=== PATIENT | male | born 1955 | race Caucasian/White ===

== ENCOUNTER 2016-05-26 09:56 | Day surgery (SDC) | payer MEDICARE ==
--- NOTE | 2016-05-24 08:52 | PCM.HPANE ---
Patient Data Surgeon Admitting Provider: Attending Provider:Kvng Barber MD Primary Care Physician:Lucille Mejia MD Other Provider:Alyce Mccarthy Anesthesia Reason for Visit Chronic Renal Failure Ht/WT & BMI Height (Feet): 5 Height (Inches): 10 Weight (Kilograms): 70.7 Body Mass Index 22.00 Allergies Coded Allergies: No Known Drug Allergies (Verified Allergy, Unknown, 01/28/16) Past Anesthesia History Anesthesia History: Denies:: Abnormal Airway, Anesthesia Reactions, Difficult Intubation, Fam Anesthesia Reaction, Fam Malignant Hypertherm, Malignant Hyperthermia Diabetes History Hx Diabetes?: Yes (IDDM, Hgb A1C 6.9- 04/2016) Type of Diabetes: Type II Glycemic Control: Insulin Dependent MRSA MRSA: No Medications Blood Thinner: Aspirin Hypertension Medication: Yes Home Meds Incl Beta Denia: Yes Reported Medications Carvedilol 6.25 Mg Tablet6.25 Mg PO QPM Ref 0 05/22/16 Carvedilol 6.25 Mg Zsugvz51.5 Mg PO QAM Ref 0 05/22/16 Amitriptyline 25 Mg Tab50 Mg PO HS Ref 0 05/05/16 Sodium Polystyrene Sulfonate (Kionex)15 Gm/60 Ml Oral.susp15 Gm PO every other day 05/05/16 Sodium Bicarbonate 650 Mg Tablet2 Tab PO BID 05/05/16 Tamsulosin (Flomax)0.4 Mg Capsule0.4 Mg PO DAILY Ref 0 04/07/16 Ferrous Sulfate 325 Mg Hkvmqx143 Mg PO DAILY 30 Days Ref 0 11/13/15 Amlodipine 10 Mg Rdjteu50 Mg PO DAILY Ref 0 11/13/15 Calcitriol (Rocaltrol)0.25 Mcg Capsule0.25 Mcg PO DAILY 07/10/15 Aspirin 81 Mg Owgcsk76 Mg PO DAILY Ref 0 06/09/15 Simvastatin 40 Mg Yasgul28 Mg PO HS 30 Days Ref 0 08/10/14 Gabapentin 400 Mg Rffkbap647 Mg PO TID 30 Days Ref 0 07/28/14 Insulin Aspart (NovoLOG U-100 Pen)100 Unit/Ml Insuln.pen3 U Sq Dailywm WITH MEALS 07/28/14 Discontinued Reported Medications Carvedilol 25 Mg Griykf99 Mg PO DAILY Ref 0 05/05/16 History History of ENT Problems?: Yes HEENT History: Positive for:: Cataracts (not yet surgically treated) Hearing Problem Denies:: Abnormal Airway Difficult Intubation Dysphagia Glaucoma Sinus Problem TMJ Other HEENT Pertinent History: diabetic retinopathy- surgery in february to clean up hemorrhaging- Dr Henderson Hx of Heart Problems?: Yes Cardiovascular History: Positive for:: Edema Hypertension Denies:: AICD Atrial Fibrillation Cardiac Surgery Chest Pain Congestive Heart Failure Heart Murmur Irregular Heartbeat Pacemaker Thrombophlebitis Valvular Heart Disease Hx of Respiratory Problem?: No Respiratory History: Denies:: Asthma COPD Cough Emphysema Oxygen Administration Pneumonia Tuberculosis Use of C-PAP Machine Use of Inhalers / NEBS Hx Neurologic Problems?: No Neurological History: Denies:: CVA Dementia Dizziness Headaches Multiple Sclerosis Parkinson's Disease Seizures Hx of GI Problems?: No Gastrointestinal History: Denies:: Cirrhosis Diverticulitis Gall Bladder Disease Gastroesphageal Reflux Heartburn Hepatitis Liver Disease Hx of Problems?: Yes Genitourinary History: Denies:: HX of Hemodialysis (CKDstage IV) Kidney Stones Urinary Tract Infection HX of Peritoneal Dialysis: No Male Hx: Denies:: Prostate Problems Scrotal Mass Testicular Surgery Skin History: Denies:: History Skin Disorders? Pressure Ulcers Hx Musculoskeletal Problems?: Yes Musculoskeletal History: Positive for:: Musculoskeletal Trauma (LEFT ANKLE) Denies:: Back Injury Fibromyalgia Joint Replacement Myasthenia Gravis Osteoarthritis Rheumatoid Arthritis Hx of Psycho/Social Problems?: No Psycho Social History: Denies:: Anxiety Bipolar Disorder Hx Depression Hx Surgeries?: Yes (bilat wrists carpel tunnel repair, L finger tumor removed, BROKEN LEFT HEEL) Hx Any Other Health Problems?: Yes Other History: Denies:: Cancer Hospitalization Thyroid Disease History Blood Transfusions: Positive for:: Accept Blood Products? Blood Transfusions (iron infusions and procrit injections/ dec 2015- anemia) Hx Diabetes: Yes (IDDM, Hgb A1C 6.9- 04/2016) Hx Alcohol Use: NoHx Substance Use: No Smoking Status: Never Smoker Have You Smoked inLast 12 mo: No Stop/Bang S-Snoring: Do You Snore Loudly: Yes T-Tired: feel tired, fatigued: Yes O-Obsered: Observed not breath: No P-Blood Pressure: treated: Yes B- Body Mass Index > 35 kg/m2: No A- Age over 50: Yes N- Neck Large Circumference: No G- Gender Male: Yes AIMEE Total Score: 5 Risk Assessment Category Category 1A: Patient has history of documented sleep apnea, and HAS NOT received any narcotic, sedative or anesthesia administration during this stay. Category 1B: Patient has history of documented sleep apnea, and HAS received any narcotic , sedative or anesthesia administration during this stay Category 2: Patient has SUSPECTED Obstructive Sleep Apnea, and HAS received any narcotic , sedative or anesthesia administration during this stay. Category 3: Patient has SUSPECTED Obstructive Sleep Apnea and HAS NOT received narcotic, sedative or anesthesia administration during this stay. Category 4: Outpatient in Procedural Areas with known sleep apnea or who screen positive for High Risk via the STOP/BANG questionnaire. Exam Exam General Appearance: Alert, Oriented X3, Cooperative, Moderate Distress HEENT/AIRWAY: MP 2, Neck Movement (from), Mouth Opening (wnl, prominent front teeth) Lungs: Clear to Auscultation Heart: Exam Unremarkable Plan Impression Patient chart reviewed, patient interviewed and anesthestic plan with risks, benefits, and alternatives discussed, and informed consent obtained. NPO Status: 1900 08/13/14 ASA Physical Status: ASA3 Severe Disease Anesthetic Plan: GA Bene/Risks/Altern/Consents: Yes HP Complete Prior to Induction: Yes Other pt insists on GA. Shane Arenas MD May 24, 2016 08:52
--- NOTE | 2016-05-24 08:52 | PCM.ANEP2 ---
Post Anesthesia Evaluation ASA/CMS Post Anesthesia VS in Patient's Normal Range?: Yes Resp Stable; Airway Patent?: Yes CV Function & Hydration Stable: Yes Mental Status Recovered?: Yes Pain control Satisfactory?: Yes N/V Control Satisfactory?: Yes Shaen Arenas MD May 24, 2016 08:52
[2016-05-26] VITALS (9 sets, daily range): BP systolic 105–140; BP diastolic 62–87; PULSE 74–80; RESP 10–16; O2SAT 94–99
[~2016-05-26] VITALS: Ht 177.8 cm; Wt 69.1 kg
[~2016-05-26 09:56] MED LIST: AMLO10TA3 PO; AMT25T PO; ASPI-973 PO; CALC0.257 PO; CARV6.252 PO; CeFAZolin 2 Gm/50 mL D5W IV Premix IV ONE; FERR-83 PO; GABA-504 PO; INSU100I SQ; Lactated Ringer's 1,000 ML IV ONE; SIMV40TA5 PO; SODI15OR2 PO; SODI650T PO; TAMS0.4C98 PO
[2016-05-26] MEDS ORDERED: fentaNYL-PF 50 mCg/mL 2 mL Inj ONE (09:57)
[2016-05-26] MEDS ORDERED: Ondansetron 2 mg/mL 2 mL Inj ONE (09:57)
[2016-05-26] MEDS ORDERED: Propofol 10,000 mCg/mL 20 mL Inj ONE (09:57)
[2016-05-26] MEDS ORDERED: CeFAZolin 2 Gm/50 mL D5W Duplex Bag IV ONE (10:58)
[2016-05-26] MEDS ORDERED: HYDROmorphone 1 mg/mL Inj IVPUSH PRN (12:25)
[2016-05-26] MEDS ORDERED: fentaNYL-PF 50 mCg/mL 2 mL Inj IVPUSH PRN (12:25)
[2016-05-26] MEDS ORDERED: Lactated Ringer's 1,000 ML IV SCH (12:25)
[2016-05-26] MEDS ORDERED: EPHEDrine Sulfate 50 mg/mL Inj IVPUSH PRN (12:25)
[2016-05-26] MEDS ORDERED: Labetalol 5 mg/mL 4 mL Inj IV PRN (12:25)
[2016-05-26] MEDS ORDERED: Atropine 0.4 mg/mL Inj IVPUSH PRN (12:25)
[2016-05-26] MEDS ORDERED: Ondansetron 2 mg/mL 2 mL Inj IVPUSH PRN (12:25)
[2016-05-26] MEDS ORDERED: Phenylephrine 10,000 mCg/mL Inj IVPUSH PRN (12:25)
[2016-05-26] MEDS ORDERED: Dexamethasone 4 mg/mL Inj IVPUSH PRN (12:25)
[2016-05-26] MEDS ORDERED: Lactated Ringer's 500 ML IV PRN (12:25)
[2016-05-26] MEDS ORDERED: hydrALAZINE 20 mg/mL Inj IVPUSH PRN (12:25)
[2016-05-26] MEDS ORDERED: Bupivacaine-MPF 0.5% 30 mL Inj INFILTRATE ONE (12:44)
[2016-05-26] MEDS ORDERED: Papaverine 30 mg/mL 2 mL Inj XX ONE (12:44)
[2016-05-26] MEDS ORDERED: Heparin 5,000 Unit/mL Inj IR ONE (12:44)
[2016-05-26] MEDS ORDERED: 0.9% Sodium Chloride 1,000 ML IV ONE (12:44)
[2016-05-26] MEDS ORDERED: oxyCODONE-Acetamin 5-325 mg Tablet PO PRN (14:10)
--- NOTE | 2016-05-26 14:14 | PCM.ANEP1 ---
Post Anesthesia Phase 1 PACU Phase 1 Assessment Vital Signs Vital Signs Date Time Temp Pulse Resp B/P Pulse Ox O2 Delivery O2 Flow Rate FiO2 05/26/16 10:24 35.6 79 16 140/87 97 Room Air Anesthetic Administered: GA Level of Alertness: Sleepy, easy to arouse GAUTHIER's with Equal Strength: Yes Pain: No Nausea or Vomiting: No Oxygen Delivery: Simple Mask Lungs: Normal Air Movement Shane Arenas MD May 26, 2016 14:14
--- NOTE | 2016-05-27 00:44 | OP ---
[address] [address] OPERATIVE REPORT PATIENT: LILY FABIAN : 1955 MR#: [id number] ADMIT: 05/26/2016 JOB ID: [id number] DATE OF SURGERY: 05/26/2016 PREOPERATIVE DIAGNOSIS(ES): Stage 4 chronic renal failure. POSTOPERATIVE DIAGNOSIS(ES): Stage 4 chronic renal failure. PROCEDURE: Right radiocephalic arteriovenous fistula. SURGEON: Kvng Barber MD [employer] REPRESENTATIVE: Pierce Frazier PA-C INDICATIONS: A 60-year-old man who has stage 4 chronic renal failure. He needs a fistula for eventual dialysis. He only had one usable vein by physical examination and by upper extremity duplex exam, and it happened to be his right forearm cephalic vein. He had an intact palmar arch by Doppler and, after discussing options with the patient, it was elected to proceed with a right radiocephalic AV fistula. FINDINGS: At the conclusion of the anastomosis, his vein was dilating and had an easily palpable thrill. He had scattered calcific plaque in his radial artery but normal inflow and in the line of the anastomosis, the artery was soft. DESCRIPTION OF PROCEDURE: At the beginning and end of the operation, the SCOAP checklist was completed. The patient requested an LMA anesthetic which was provided by Dr. Beny Arenas MD, from Anesthesia. Using ChloraPrep, his right upper extremity was prepped and draped in the usual fashion. The cephalic vein was marked, as was the location of the right radial artery. An incision was designed and infiltrated with 0.5% plain bupivacaine. The artery was exposed, controlled proximally and distally with sharp dissection and with vessel loops. Side branches were controlled with clips. The vein was then exposed distally where it was divided after placing two clips distally. The vein was flushed with heparinized saline and occluded with a small micro bulldog. The artery was occluded, opened longitudinally, flushed proximally and distally with heparinized saline. The back wall of the vein was cut to fashion the awad, and then the anastomosis was completed with running 6-0 Prolene sutures. [place] through the anastomosis, the vein was flushed with papaverine. Prior to completing the anastomosis, the artery was backflushed to eliminate air. The anastomosis was then completed, and then the micro bulldog on the vein was released. The artery was backflushed into the vein, followed by forward flushing into the vein and then forward flow to the hand. There was no bleeding from the anastomosis. The vein dilated and a thrill could be appreciated. The hand was well perfused. Care was done during the operation to maintain sensory nerve that go to the thenar eminence of the thumb. The estimated blood loss was less than 10 cc. There were no apparent complications. The final sponge, needle, and instrument counts were announced as correct. The patient was returned to the recovery room in stable condition. Critical Assistance provided by JENNIFER Schroeder
--- NOTE | 2016-05-27 06:54 | PCM.ANEP2 ---
Post Anesthesia Evaluation ASA/CMS Post Anesthesia VS in Patient's Normal Range?: Yes Resp Stable; Airway Patent?: Yes CV Function & Hydration Stable: Yes Mental Status Recovered?: Yes Pain control Satisfactory?: Yes N/V Control Satisfactory?: Yes Shane Arenas MD May 27, 2016 06:54
[2016-07-05] MEDS ORDERED: INSU100V4 SUBQ (10:45)
== END 2016-05-26 23:59 | disposition home or self-care (01) ==
LOC: SAS 09:56
PROVIDERS: ATTEND Surgery
DX: N18.4 Chronic kidney disease, stage 4 (severe) (principal); I12.9 Hypertensive chronic kidney disease with stage 1 through stage 4 chronic kidney disease, or unspecified chronic kidney disease; E11.40 Type 2 diabetes mellitus with diabetic neuropathy, unspecified; Z79.4 Long term (current) use of insulin; Z79.82 Long term (current) use of aspirin
CPT/HCPCS: 36415; 36820; 84132; J0690; J1644; J2405; J7030; J7120